=== PATIENT | male | born 1955 | race Caucasian/White ===

== ENCOUNTER → 2016-10-21 | Outpatient (CLI) | payer BC ==
[~2016-10-21] MED LIST: CONTRAST GIVEN MC PRN; DIPHENHYDRAMINE 50 MG/ML VIAL. IVP ONE; IOHEXOL 240 MG/ML 50ML VIAL. IV ONE; IOHEXOL 300 MG/ML 75 ML VIAL IV ONE
--- NOTE | 2016-10-21 12:03 | RAD ---
CT chest abdomen pelvis with IV contrast History: Lymphadenopathy, lung nodule and lung cancer staging. Comparison: CT chest abdomen pelvis 05/27/2016. Technique: After administration of oral and intravenous contrast, 75 mL Omnipaque 300, helical CT of the chest, abdomen, and pelvis was performed from the lung apices through the ischial tuberosities. One or more of the following individualized dose reduction techniques were utilized for the study: Automated exposure control Adjustment of mA and/or kV according to patient's size Use of iterative reconstruction technique. Findings: Visualized thyroid appears small, but symmetric. Aortic atherosclerosis is seen. No aortic dissection is identified. Very vascular anatomy is noted with the left vertebral artery arising directly from the aortic arch. No pneumothorax or pleural effusion is seen. No mediastinal lymphadenopathy is seen. Coarse, calcified subcarinal lymph node is present. No pneumothorax or pleural effusion is appreciated. Small 3 mm left lower lobe soft tissue pulmonary nodule (series 3 image 46) is unchanged. Left lower lobe pulmonary nodule measuring 5 mm (series 3 image 51) is unchanged. No right axillary lymphadenopathy is seen. There is interval enlargement of several small left axillary lymph nodes, nonspecific. One superior left axillary lymph node (series 3 image 13) measures 1.2 x 1.1 cm maximum dimension (previously 1.2 x 1.0 cm). An additional left lateral axillary lymph node (series 3 image 18) measures 1.4 x 0.9 cm (previously 0.9 x 0.5 cm). Mild upper abdominal lymphadenopathy is seen. A celiac axis lymph node anterior to the common hepatic artery has a size of 1.8 x 0.9 cm in axial dimension (previously 1.5 x 0.7 cm). A portacaval lymph node measures 2.5 x 1.6 cm (previously 2.7 x 2.0 cm. Liver, spleen, pancreas, and bilateral adrenal glands are unremarkable. Bilateral kidneys enhance symmetrically. 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 No bowel obstruction or inflammation is seen. Urinary bladder is unremarkable. No definitive pelvic lymphadenopathy is seen. Degenerative changes are present in spine. Impression: 1. Borderline nonspecific left axillary lymphadenopathy. 2. Small nonspecific left lower lobe soft tissue pulmonary nodules with the larger measuring 5 mm, are unchanged from previous study. 3. Mild upper abdominal lymphadenopathy appears fairly similar to previous study.
== END | disposition home or self-care (01) ==
LOC: CT 11:18
PROVIDERS: ATTEND Internal Medicine Hematology & Oncology
DX: R59.1 Generalized enlarged lymph nodes (principal)
CPT/HCPCS: 71260; 74177; J1200; Q9966; Q9967

== ENCOUNTER → 2016-10-25 | Outpatient (CLI) | payer BC ==
--- NOTE | 2016-10-25 12:52 | RAD ---
Radionuclide bone scan, 10/25/2016: History: Lymphadenopathy Whole body imaging was performed following IV injection of 25 mCi of technetium 99m MDP. No previous bone scan is available at this time for comparison purposes. The following findings are delineated: 1. Increased activity at both shoulders and sternoclavicular articulations in a symmetric pattern is compatible with arthritis. 2. Mildly increased activity at the right midfoot level is likely on a traumatic or arthritic basis. 3. There is a small focus of mildly increased activity in the proximal left femur. 4 Activity of the radionuclide about the skeleton and major joints is otherwise unremarkable. 5. Normal activity is present in both kidneys and the bladder. 6. Incidental note is made of low level diffuse hepatic uptake of the bone scanning agent. This is unusual but is most likely on a technical basis related to radiopharmaceutical preparation. IMPRESSION: 1. Scattered arthritic changes as noted above. 2. Subtle focus of increased activity in the proximal left femur. Correlation with left femoral radiographs is suggested.
== END | disposition home or self-care (01) ==
LOC: NM 13:01
PROVIDERS: ATTEND Internal Medicine Hematology & Oncology
DX: R59.1 Generalized enlarged lymph nodes (principal)
CPT/HCPCS: 78306; 96374; A9503

== ENCOUNTER → 2017-05-12 | Outpatient (CLI) | payer BC ==
--- NOTE | 2017-05-12 09:35 | RAD ---
INDICATION: Lung nodule COMPARISON: 10/21/2016 TECHNIQUE: Axial CT images obtained through the chest. No intravenous contrast. FINDINGS: Sub-5 mm left lower lung pulmonary nodule is again seen, image 45. 5 mm left lower lung pulmonary nodule again seen, image 51. No evidence of pneumothorax. Linear opacities within the right middle lobe which appears increased from prior exam. 4 mm nodule right midlung posteriorly, image 39, similar to prior. Upper abdominal lymphadenopathy is again partially seen. For example cluster of lymph nodes superior lateral to the celiac access on the left measuring up to about 30 x 20 mm and was previously about 23 x 14 mm. Subcarinal region there is repeat demonstration of densely calcified lymph nodes. Ascending thoracic aorta measures up to about 4 cm. Borderline enlarged lymph nodes in the axilla bilaterally. Slightly more prominent than prior. Degenerative changes of spine. There are couple of sclerotic foci again seen in the osseous structures. Probable old sternum fracture with callus formation. IMPRESSION: 1. Multiple bilateral pulmonary nodules are identified measuring up to about 5 mm. Overall these are similar prior. 2. Within the right middle lobe there is a region of focal opacification and groundglass opacity which appears increased from prior examination with some of this region appearing new. Could be secondary to a region of atelectasis or infectious/inflammatory causes but a follow-up will be needed to ensure that this does not increase in size to exclude neoplastic causes. This could be obtained with a follow-up CT in a couple of months to ensure no growth. 3. Upper abdominal lymphadenopathy is seen and appears increased from prior examination. Would consider obtaining a follow-up CT the abdomen and pelvis to more completely evaluate given this apparent interval increase. 4. Dilatation of the ascending thoracic aorta is identified up to about 4 cm. PQRS Compliance Statement: One or more of the following individualized dose reduction techniques were utilized for this examination: 1. Automated exposure control 2. Adjustment of the mA and/or kV according to patient size 3. Use of iterative reconstruction technique
== END | disposition home or self-care (01) ==
LOC: CT 07:38
PROVIDERS: ATTEND Internal Medicine Pulmonary Disease
DX: R91.8 Other nonspecific abnormal finding of lung field (principal); R91.1 Solitary pulmonary nodule; R59.0 Localized enlarged lymph nodes
CPT/HCPCS: 71250

== ENCOUNTER → 2017-05-21 | Day surgery (SDC) | payer BC ==
[~2017-05-21] MED LIST changes: +ALBUTEROL SULFATE 2.5 MG/3 ML NEBU. NEB ONE; +ALBUTEROL SULFATE 2.5 MG/3 ML NEBU. ONE; +ATOR20TA58 PO; +CLON1TAB3 PO; -CONTRAST GIVEN MC PRN; -DIPHENHYDRAMINE 50 MG/ML VIAL. IVP ONE; +GABA-587 PO; +HYDROmorphone 2 MG/ML VIAL IV PRN; -IOHEXOL 240 MG/ML 50ML VIAL. IV ONE; -IOHEXOL 300 MG/ML 75 ML VIAL IV ONE; +IV RINGERS,LACTATED 1000ML 1,000 ML IV SCH; +LIDOCAINE 1% PF 2 ML VIAL. ID PRN; +LIDOCAINE 2% PF Vial for OR 5 ML VIAL. ONE; +MORPHINE SULFATE 2 MG/ML DISP.SYRIN. IV PRN; +ONDANSETRON PF 4 MG/2 ML VIAL. IV PRN; +PROCHLORPERAZINE 10 MG/2 ML VIAL. IV PRN; +PROPOFOL 20 ML IV ONE; +QUIN20TA17 PO; +fentaNYL PF VIAL 100 MCG/2 ML VIAL IV PRN
[2017-05-21 12:36] LABS: BASO # 0.1 x10^3/uL (0.0-0.2); BASO % 1 % (0-3); EOS % 3 % (0-3); HEMATOCRIT 47.9 % (39.0-53.0); LYMPH # 1.9 x10^3/uL (1.0-4.8); LYMPH % 26 % (24-48); MEAN CORPUSCULAR HEMOGLOBIN 31 pg (25-35); MEAN CORPUSCULAR HGB CONC 33 g/dL (31-37); MEAN CORPUSCULAR VOLUME 93 fL (79-100); MONO % 8 % (0-9); NEUT % 63 % (31-73); PLATELET COUNT 262 x10^3/uL (140-400); RED BLOOD COUNT 5.17 x10^6/uL (4.30-5.70); RED CELL DISTRIBUTION WIDTH 15.1 % (11.5-14.5); WHITE BLOOD COUNT 7.5 x10^3/uL (4.0-11.0)
[2017-05-21 12:54] LABS: INR 1.3 (0.8-1.1); PROTHROMBIN TIME PATIENT 15.2 SEC (11.7-14.0)
[2017-05-21 13:48] VITALS: BP 129/62
--- NOTE | 2017-05-21 13:59 | OP ---
DATE OF SURGERY: PROCEDURE: Bronchoscopy. INDICATIONS: Abnormal CT chest with compression of the right middle lobe and some retained secretion in the right middle lobe. DESCRIPTION OF PROCEDURE: Informed consent was obtained from the patient. All risks and benefits were explained. He agreed to proceed with the procedure. Propofol was used by Anesthesia for sedation. Bronch was introduced through the right nostril. The upper airway was passed. Vocal cords moves equally with respiration. Trachea was entered. No tracheal lesions seen. Mild frothy secretions seen in the distal trachea. Sybil was sharp. Right lung was examined. All subsegments of right upper, right middle and right lower lobe were examined. They were patent. No endobronchial lesions seen. No significant secretions seen especially in the right middle lobe. Bronchoalveolar lavage performed from right middle lobe. Bronch was introduced into the left lung. No significant airway abnormality seen in the left upper lobe, lingula or left lower lobe except for some mild frothy secretions. The patient tolerated the procedure well. IMPRESSION: 1. No evidence of any endobronchial lesions seen. 2. No significant purulent secretions seen. 3. Mucosa normal appearing. 4. Bronchoalveolar lavage performed from right middle lobe and follow the culture and cytology results. DEEPIKA GAMBOA MD DR: SHERON/sheila JOB#: [id number] / [id number] PRADIP
--- NOTE | 2017-05-22 13:14 | PATHOLOGY ---
CYTOPATHOLOGY REPORT CLINICAL HISTORY: Lung nodule SPECIMEN(S) RECEIVED: A.Bronchoalveolar lavage,RML FINAL DIAGNOSIS: A. Right middle lobe bronchoalveolar lavage, ThinPrep: - No malignant cells identified. - Bronchial epithelial cells, squamous epithelial cells, pulmonary macrophages, and scattered inflammatory cells identified. (JPM:mml; 05/22/2017) PATHOLOGIST: Ulises Carrizales M.D. REPORT ELECTRONICALLY SIGNED BY: Ulises Carrizales M.D. DATE/TIME: 05/22/2017 13:13 GROSS PATHOLOGY: A. Bronchoalveolar lavage, RML: The specimen is submitted unfixed, labeled "Sailaja Flowers". Received by the Cytology Department is five mL of clear colorless fluid. One ThinPrep slide was prepared. (mm 05.21.2017) PROTECTIVE SIGNAL OPERATIONS SUPERVISOR(S): JORGE Gomez(ASCP) INITIAL CPT CODE(S): A; 92744 Professional services performed [place] [address] Technical services performed by [facility] at [address] [place] [address], [address] [address]. PATIENT: SAILAJA FLOWERS /AGE: 601/12/1955 (Age: 62) SEX: M PATIENT #: [id number] ALT CASE #: SPECIMEN COLLECTION DATE: 05/21/2017 SPECIMEN RECEIVED DATE: 05/21/[address] [facility] [address] [place] [address], [address] [place] [address] PHONE: [phone] DIRECTOR: Patel Mcgee M.D. * * * END OF REPORT * * *
== END | disposition home or self-care (01) ==
LOC: SURG 11:32
PROVIDERS: ATTEND Internal Medicine Critical Care Medicine
DX: R91.1 Solitary pulmonary nodule (principal); I10 Essential (primary) hypertension; G47.30 Sleep apnea, unspecified; M19.90 Unspecified osteoarthritis, unspecified site; F32.9 Major depressive disorder, single episode, unspecified; F41.9 Anxiety disorder, unspecified; Z98.890 Other specified postprocedural states
CPT/HCPCS: 31622; 36415; 85025; 85610; 87070; 87205; 88112; 94640; J2704; J7613; 31624; J2001

== ENCOUNTER → 2017-10-06 | Outpatient (CLI) | payer BC ==
[2017-10-06] MEDS: IOHEXOL 300 MG/ML 100ML VIAL. IV (11:06)
[2017-10-06] MEDS: IOHEXOL 240 MG/ML 50ML VIAL. PO (11:06)
== END | disposition home or self-care (01) ==
LOC: CT 09:34
DX: K76.0 Fatty (change of) liver, not elsewhere classified (principal); N40.0 Benign prostatic hyperplasia without lower urinary tract symptoms; I70.0 Atherosclerosis of aorta; M48.56XA Collapsed vertebra, not elsewhere classified, lumbar region, initial encounter for fracture; D71 Functional disorders of polymorphonuclear neutrophils; I10 Essential (primary) hypertension; Z90.49 Acquired absence of other specified parts of digestive tract
CPT/HCPCS: 74177; Q9966; Q9967

== ENCOUNTER 2017-10-16 08:24 | Outpatient (CLI) | payer BC ==
[2017-10-16] MEDS ORDERED: LIDOCAINE WITH 8.4% SOD BICARB 3 ML DISP.SYRIN. (09:14)
[2017-10-16 09:28] LABS: ADD MAN DIFF? NO
[2017-10-16 09:46] LABS: BASO # 0.1 x10^3/uL (0.0-0.2); BASO % 1 % (0-3); EOS # 0.1 x10^3/uL (0.0-0.7); EOS % 2 % (0-3); HEMATOCRIT 44.7 % (39.0-53.0); LYMPH # 1.7 x10^3/uL (1.0-4.8); LYMPH % 24 % (24-48); MEAN CORPUSCULAR HEMOGLOBIN 31 pg (25-35); MEAN CORPUSCULAR HGB CONC 34 g/dL (31-37); MEAN CORPUSCULAR VOLUME 91 fL (79-100); MONO # 0.5 x10^3/uL (0.0-1.1); MONO % 8 % (0-9); NEUT # 4.5 x10^3uL (1.8-7.7); NEUT % 65 % (31-73); PLATELET COUNT 251 x10^3/uL (140-400); RED BLOOD COUNT 4.92 x10^6/uL (4.30-5.70); RED CELL DISTRIBUTION WIDTH 15.1 % (11.5-14.5); WHITE BLOOD COUNT 6.9 x10^3/uL (4.0-11.0)
[2017-10-16 10:00] LABS: INR 1.4 (0.8-1.1); PARTIAL THROMBOPLASTIN TIME 35 SEC (24-38); PROTHROMBIN TIME PATIENT 16.7 SEC (11.7-14.0)
[2017-10-16] MEDS ORDERED: MIDAZOLAM HCL/PF 2 MG/2 ML VIAL. (10:17)
[2017-10-16] MEDS ORDERED: fentaNYL PF VIAL 100 MCG/2 ML VIAL (10:17)
[2017-10-16] MEDS: LIDOCAINE WITH 8.4% SOD BICARB 3 ML DISP.SYRIN. IJ (10:39)
[2017-10-16] MEDS: fentaNYL PF VIAL 100 MCG/2 ML VIAL IV (10:40)
[2017-10-16] MEDS: MIDAZOLAM HCL/PF 2 MG/2 ML VIAL. IV (10:40)
== END 2017-10-16 12:08 | disposition home or self-care (01) ==
LOC: INTRAD 08:24
DX: D47.2 Monoclonal gammopathy (principal)
CPT/HCPCS: 36415; 38222; 77012; 85025; 85610; 85730; 88184; 88185; 88237; 99152; J2250; J3010

== ENCOUNTER → 2017-11-03 | Outpatient (CLI) | payer BC | END | disposition home or self-care (01) | LOC: RAD 14:36 | DX: S52.502D Unspecified fracture of the lower end of left radius, subsequent encounter for closed fracture with routine healing (principal); M48.56XA Collapsed vertebra, not elsewhere classified, lumbar region, initial encounter for fracture; R59.1 Generalized enlarged lymph nodes; X58.XXXD Exposure to other specified factors, subsequent encounter | CPT/HCPCS: 77075 ==

== ENCOUNTER → 2017-12-04 | Outpatient (CLI) | payer BC | END | disposition home or self-care (01) | LOC: PETSC 07:52 | DX: R59.1 Generalized enlarged lymph nodes (principal) | CPT/HCPCS: 78815; A9552 ==